=== PATIENT | female | born 2000 | race African-American/Black ===

== ENCOUNTER 2023-05-18 09:07 | Emergency (ER) | payer MEDICAID ==
[~2023-05-18] VITALS: Ht 170.2 cm; Wt 95.3 kg
[2023-05-18 09:17] VITALS: BP 112/72; PULSE 115; RESP 19; TEMP 99.2
[2023-05-18] MEDS ORDERED: KETOROLAC 60 MG/2 ML VIAL IM ONE (09:45)
[2023-05-18] MEDS ORDERED: IBUP-2213 PO (09:47)
[2023-05-18] MEDS ORDERED: CEPH-588 PO (09:47)
[2023-05-18 10:10] VITALS: BP 112/72; PULSE 115; RESP 19; TEMP 99.2
== END 2023-05-18 10:10 | disposition home or self-care (01) ==
LOC: MED 09:07
DX: N61.0 Mastitis without abscess (principal); Z79.899 Other long term (current) drug therapy
CPT/HCPCS: 96372; 99283; J1885